=== PATIENT | male | born 2005 | race Caucasian/White ===

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

== ENCOUNTER 2025-05-05 19:50 | Emergency (ER) | payer OTHER, SELFPAY ==
[2025-05-05 19:52] VITALS: BP 146/82
--- NOTE | 2025-05-05 20:19 | ED.GENMED ---
History of Present Illness
General
Chief Complaint: Post Operative Problem(s)
Source: patient
Exam Limitations: none
Time Seen by Provider: 05/05/25 20:13
Nursing documentation reviewed up to this point in time: agreed with
History of Present Illness
History of Present Illness:
20-year-old male with history as noted presents to the ER for evaluation of pain in his tailbone. Of note patient had outpatient surgery for an anal fissure on 04/20. He says that about 2 or 3 days ago he started to have pain in his tailbone that
has been increasing since that time send to the point that he can barely sit down due to significant pain. He says that he has noticed some drainage from the area and when he wipes when going to the bathroom. He has not had any pain with bowel
movements aside from the pain of sitting on the toilet. He denies any rectal bleeding. He has not had any abdominal pain. He has not had any fevers or chills. He says that he discussed with his colorectal surgery team (Dr. Cano) who referred
him to the ER for CT scan.
Past History
Past History
ED Past Medical History: Psychiatric
ED Past Surgical History: Appendectomy
Social History
Tobacco: Non-smoker
Alcohol: None
Drug: None
Personal: Single
Living: with family
Review of Systems
Review of Systems
All Other Systems: ROS reviewed and negative except as documented in HPI and ROS
Constitutional: Denies fever or chills
Respiratory: Denies trouble breathing
Cardiac: Denies chest pain
ABD/GI: Denies abdominal pain, nausea, vomiting or bloody stools
: Reports other (Tailbone pain)
Neurological: Denies headache
Phy Exam
Physical Exam
Physical Exam:
General: Awake, alert, oriented x3; no acute distress
Head: Normocephalic, atraumatic
Eyes: Conjunctiva normal
Throat: Airway intact, handling secretions
Neck: Trachea midline, supple without meningismus
Lungs: Breathing comfortably not in distress
Heart: Regular rate
Abd: Soft, non distended, nontender
Rectal: Patient has erythema, warmth, tenderness in the pilonidal region with punctate opening and small amount of purulent drainage
Neuro: Grossly intact
Extremities: Warm and well-perfused
Scores
Heart Failure Risk
Heart Failure Risk Score: Not Applicable
Heart Score for Chest Pain Patients
STEMI patient?: Not applicable
Withdrawal Assessment of Alcohol
Withdrawal Assessment Completed?: Not applicable
Course
Orders/Labs/Results
Orders:
Orders
05/05/25 20:14
CT Abd/pelvis W Iv Cont Urgent
Comment:
Reason For Exam: post op rectal pain
05/05/25 20:32
Complete Blood Count/With Diff Urgent
Comprehensive Metabolic Panel Urgent
05/05/25 21:47
Amoxicillin 875 mg/Clav 125 mg [Augmentin 875 mg/125 mg] 1 tablet PO NOW STA
05/05/25 22:01
Wound Culture [Wound/Abscess/Other Culture] Urgent
GADIEL Source: Pilonidal
Specimen Description:
Date Specimen was Collected: 05/05/25
Time Specimen was Collected: 22:00
Abnormal Lab Results
05/05/25
20:32
Absolute Neuts (auto) 7.8 H 10^3/uL
(1.4-6.5)
Neutrophils % 78.2 H %
(42.2-75.2)
Lymphocytes % 14.9 L %
(20.5-51.1)
BUN 21 H mg/dl
(9-20)
Glucose 130 H mg/dl
(70-99)
05/05/25 20:32
05/05/25 20:32
Vital Signs
Initial and Last Documented VS:
Initial Vital Signs
Temp Pulse Resp BP Pulse Ox
36.9 C 84 18 146/82 98
05/05/25 19:52 05/05/25 19:52 05/05/25 19:52 05/05/25 19:52 05/05/25 19:52
Last Documented Vital Signs
Temp Pulse Resp BP Pulse Ox
36.9 C 70 18 118/70 99
05/05/25 19:52 05/05/25 21:34 05/05/25 21:34 05/05/25 21:34 05/05/25 21:34
Procedures
Incision/Drainage/Joint Aspiration
Sacrum:
Anethesia: 1% Lidocaine with Epi
Preparation: cleaned with alcohol wipe
Type of procedure: incise and drain
Nature of site: abscess
Description of abscess: drainage
Loculations broken up: No
How much fluid was obtained?: small amount (10cc)
Fluid description: purulent
Treatment: left open for drainage and antibiotics started
MDM/Problems Addressed
Differential Diagnosis Includes:
Pilonidal abscess, postoperative abscess with fistula
MDM/Problems Addressed:
20-year-old male who had recent procedure for anal fissure presents with pain in his tailbone, redness and some drainage from the area. Sent for CT by his surgeon. Vitals and exam as above�he appears to have pilonidal abscess although will check
CT to rule out any deeper abscess or signs of fistula/postoperative issue. Will check basic labs. Will discuss with colorectal surgery pending imaging.
Labs reviewed and no clinically significant abnormalities. CT shows no acute abnormalities. Reviewed case with colorectal surgery. Will plan to I&D bilateral abscess, will send for culture. Start on empiric antibiotics. Follow-up as an
outpatient. Spoke about follow-up plan and return precautions.
*Radiology
Radiology exam reviewed: radiology read reviewed
*Pulse Oximetry
SaO2: 98
Oxygen Mode of Delivery: Room air
Patient hypoxic: no (98%)
*Critical Care Note
Total Time (30-74mins, 75-104mins- exclusive of procedures): Not Applicable
Data Reviewed
Source: patient and records
Patient Management
Discussion with other providers: Feeder Driver (Discussed with colorectal surgeon)
ED Attending Note
-
Portions of this chart may have been created with voice recognition software.� Occasional wrong word or��sound alike� substitutions may have occurred due to the inherent limitations of voice recognition software.
Discharge Plan
Departure
Patient Disposition: Home (Routine Discharge)
Date of Disposition: 05/05/25
Time of Disposition: 22:05
Patient with high blood pressure during this ER visit?: Yes
Discharge Problem:
Pilonidal abscess
Instructions: Pilonidal Disease
Prescriptions:
New
amoxicillin-pot clavulanate 875-125 mg tablet
1 tab PO BID Qty: 10 0RF
No Action
methylphenidate HCl 20 mg tablet
20 mg PO DAILY@1015
Patient Comments:
01/01/2023: last filled 12/16/22, 45 tabs for 30 days from [facility]#[id number]
sertraline 100 mg tablet
100 mg PO DAILY
Rx Instructions:
TAKEN W/ 50MG = 150MG
sertraline 50 mg tablet
50 mg PO DAILY
Rx Instructions:
TAKEN W/ 100MG = 150MG
dexmethylphenidate 40 mg capsule,ER biphasic 50-50
40 mg PO DAILY
Patient Comments:
01/01/2023: last filled 12/16/22, 30 tabs for 30 days from [id number]
acetaminophen [acetaminophen] 325 mg tablet
650 mg PO Q4HPRN PRN (Reason: mild pain) Qty: 1 0RF
ibuprofen 200 mg tablet
400 - 600 mg PO Q6HPRN PRN (Reason: moderate pain) Qty: 1 0RF
amoxicillin-pot clavulanate [amoxicillin-pot clavulanate] 875-125 mg tablet
1 tab PO Q12 Qty: 8 0RF
oxycodone 5 mg tablet
5 mg PO Q4HPRN PRN (Reason: breakthrough/severe pain) Qty: 8 0RF
doxycycline hyclate 100 mg capsule
100 mg PO BID Qty: 14 0RF
Referrals:
West Larios DO [Family Provider, Family Practice] - Call in 1-3 days for appt
Rey Cano MD [Active, [facility]] - Follow up in 5-7 days
Activity Restrictions/Additional Instructions:
Thank you for visiting the Emergency Department at [facility].
1. Please schedule a follow up appointment as directed. Call first thing tomorrow morning to make an appointment.
2. If indicated, please take your medications as instructed and indicated on discharge paperwork.
3. If any of your symptoms do not improve, or persist, or become more severe within 6-12 hours, please return to the emergency department for further care.
4. Please return to the emergency department if you develop a headache, neck pain/stiffness, fever greater than 100.4F, chest pain, shortness of breath, persistent nausea, vomiting, slurred speech, difficulty walking, numbness/tingling, weakness,
signs of infection or any other symptoms that are worrisome to you.
Please call [phone] if you have any questions.
Interventions
Interventions:
*Risk Screen - Suicide Last Done: 05/05/25 19:52
*General Assessment Last Done: 05/05/25 19:52
*Neglect/Abuse Screening Last Done: 05/05/25 19:52
Discharge Date and Time
Print Language: MARSHALLESE
[2025-05-05 20:38] LABS: Hematocrit 39.1 % (39.0-52.0); Hemoglobin 13.5 g/dL (13.0-18.0); Mean Corp Hgb Conc. 34.5 g/dL (33.0-37.0); Mean Corpuscular Volume 83.0 fL (80.0-94.0); Nucleated Red Blood Cells % 0 % (-); Platelet Count 307 10^3/uL (130-400); Red Cell Dist. Width 12.6 % (11.5-14.5)
[2025-05-05 20:51] LABS: ALT (SGPT) 26 U/L (0-50); AST (SGOT) 22 U/L (17-59); Albumin 4.9 g/dl (3.5-5.0); Alkaline Phosphatase 86 U/L (38-126); Blood Urea Nitrogen 21 mg/dl (9-20); Calcium 9.1 mg/dl (8.4-10.2); Carbon Dioxide 25 mmol/L (22-30); Chloride 105 mmol/L (98-107); Glucose 130 mg/dl (70-99); Potassium 4.1 mmol/L (3.5-5.1); Sodium 140 mmol/L (135-145); Total Protein 7.6 g/dl (6.3-8.2); eGFR > 60.00
[2025-05-05 21:34] VITALS: BP 118/70
[2025-05-05] MEDS: AUGMENTIN 875 MG/125 MG 1 TABLET PO (22:14)
== END 2025-05-05 22:24 | disposition home or self-care (01) ==
LOC: EMR 19:50
PROVIDERS: EMERGENCY PHYSICIAN Emergency Medicine; FAMILY PHYSICIAN Family Medicine
DX: L05.01 Pilonidal cyst with abscess (principal); Z90.49 Acquired absence of other specified parts of digestive tract
CPT/HCPCS: 99283; 10080; 74177; 80053; 85025; 87070; 87205; Q9967